=== PATIENT | male | born 1950 | race African-American/Black ===

== ENCOUNTER 2019-10-16 17:17 | Inpatient (IN) | payer SELFPAY ==
[~2019-10-16] VITALS: Ht 175.3 cm; Wt 50.3 kg
[2019-10-16 18:18] LABS: HEMATOCRIT. 45.1 % (42.0-52.0); HEMOGLOBIN. 14.8 g/dL (14.0-18.0); MEAN CORPUSCULAR VOLUME 85.1 fL (80.0-94.0); MEAN PLATELET VOLUME 9.9 fl (7.4-10.4); RED BLOOD CELL COUNT 5.29 mill/uL (4.7-6.1); RED CELL DISTRIBUTION WIDTH 16.1 % (11.6-14.6)
[2019-10-16 18:21] LABS: CHLORIDE 103 mEq/L (98-107)
[2019-10-16] MEDS ORDERED: IPRATROPIUM/ALBUTEROL 0.5-3(2.5)MG/3ML NEB HHN ONE (20:30)
[2019-10-16 21:08] LABS: PLATELET ESTIMATE DECREASED
[2019-10-16 21:11] LABS: PLATELET 52 x1000/uL (130-400)
[2019-10-16] MEDS ORDERED: AZITHROMYCIN 500 MG TABLET PO ONE (23:15)
[2019-10-16] MEDS ORDERED: SODIUM CHLORIDE 0.9% 1000ML BAG (SEPSIS BOLUS) IV ONE (23:15)
[2019-10-17] MEDS ORDERED: AZITHROMYCIN 500 MG in DEXT 5% WATER 250 ML IV STA (00:25)
[2019-10-17] MEDS ORDERED: CLONIDINE 0.1MG TABLET PO PRN (03:00)
[2019-10-17] MEDS ORDERED: MAGNESIUM/ALUMINUM HYDROXIDE/SIMETHICONE 30ML UDC PO PRN (03:00)
[2019-10-17] MEDS ORDERED: DIPHENHYDRAMINE 50MG/ML VIAL IV PRN (03:00)
[2019-10-17] MEDS ORDERED: ONDANSETRON HCL 4MG/2ML INJ IV PRN (03:00)
[2019-10-17] MEDS ORDERED: GUAIFENESIN 200MG/10ML SUGAR FREE UDC PO PRN (03:00)
[2019-10-17] MEDS ORDERED: IPRATROPIUM/ALBUTEROL 0.5-3(2.5)MG/3ML NEB HHN PRN (03:00)
[2019-10-17] MEDS ORDERED: LEVOFLOXACIN 500MG PREMIX 100 ML IV SCH (03:00)
[2019-10-17 09:15] VITALS: BP 132/82
[2019-10-17 12:09] VITALS: BP 102/70
[2019-10-17] MEDS: SODIUM CHLORIDE 0.9% INJ 3ML FLUSH IVF SCH ×3 (14:00→22:27)
[2019-10-17 14:37] LABS: CLARITY URINE CLOUDY (CLEAR); COLOR URINE DARK YELLOW (YELLOW); KETONES URINE 1+ (NEGATIVE); LEUKOCYTE ESTERASE URINE 2+ (NEGATIVE); NITRITE URINE NEGATIVE (NEGATIVE); OCCULT BLOOD URINE 3+ (NEGATIVE); PROTEIN URINE 1+ (NEGATIVE); SPECIFIC GRAVITY URINE 1.025 (1.005-1.030)
[2019-10-17 15:02] LABS: *AMPHETAMINES SCREEN URINE NEGATIVE (NEGATIVE); *BARBITURATES SCREEN URINE NEGATIVE (NEGATIVE); *BENZODIAZEPINES SCREEN URINE NEGATIVE (NEGATIVE); *COCAINE SCREEN URINE NEGATIVE (NEGATIVE); METHADONE URINE SCREEN NEGATIVE (NEGATIVE); OPIATES URINE SCREEN NEGATIVE (NEGATIVE)
[2019-10-17 15:03] LABS: CANNABINOID URINE SCREEN NEGATIVE (NEGATIVE); PHENCYCLIDINE URINE SCREEN NEGATIVE (NEGATIVE)
[2019-10-17 16:12] VITALS: BP 121/74
[2019-10-17] MEDS: CEFTRIAXONE 1 G PREMIX 50 ML IV SCH (18:48)
[2019-10-17 20:00] VITALS: BP 120/80
[2019-10-18] VITALS: BP 108/71
[2019-10-18] MEDS: AZITHROMYCIN 500 MG in DEXT 5% WATER 250 ML IV SCH (00:15)
[2019-10-18] MEDS: ACETAMINOPHEN 325MG TABLET PO PRN (01:52)
[2019-10-18] MEDS: IPRATROPIUM/ALBUTEROL 0.5-3(2.5)MG/3ML NEB HHN SCH ×4 (02:40→19:58)
[2019-10-18 04:00] VITALS: BP 129/80
[2019-10-18] MEDS: SODIUM CHLORIDE 0.9% INJ 3ML FLUSH IVF SCH ×3 (06:10→22:51)
[2019-10-18 06:56] LABS: HEMATOCRIT. 33.4 % (42.0-52.0); HEMOGLOBIN. 11.2 g/dL (14.0-18.0); MEAN CORPUSCULAR HEMOGLOBIN 28.2 pg (28.0-32.0); MEAN CORPUSCULAR VOLUME 84.3 fL (80.0-94.0); MEAN PLATELET VOLUME 9.1 fl (7.4-10.4); RED BLOOD CELL COUNT 3.96 mill/uL (4.7-6.1); RED CELL DISTRIBUTION WIDTH 15.7 % (11.6-14.6)
[2019-10-18 07:42] LABS: CHLORIDE 98 mEq/L (98-107)
[2019-10-18 07:49] LABS: PLATELET 50 x1000/uL (130-400)
[2019-10-18 08:00] VITALS: BP 97/68
[2019-10-18 12:40] VITALS: BP 92/62
[2019-10-18] MEDS: CEFTRIAXONE 1 G PREMIX 50 ML IV SCH (14:21)
[2019-10-18 16:12] VITALS: BP 98/64
[2019-10-18 20:44] VITALS: BP 113/70
[2019-10-18] MEDS ORDERED: TEMAZEPAM 15MG CAPSULE PO PRN (21:45)
[2019-10-19] MEDS: ACETYLCYSTEINE 100MG/ML 10% VIAL 4ML INH SCH ×2 (00:31→15:56)
[2019-10-19 00:37] VITALS: BP 116/68
[2019-10-19] MEDS: AZITHROMYCIN 500 MG in DEXT 5% WATER 250 ML IV SCH (01:00)
[2019-10-19] MEDS: IPRATROPIUM/ALBUTEROL 0.5-3(2.5)MG/3ML NEB HHN SCH ×5 (01:55→20:29)
[2019-10-19 04:00] VITALS: BP 121/66
[2019-10-19] MEDS: SODIUM CHLORIDE 0.9% INJ 3ML FLUSH IVF SCH ×3 (05:44→22:12)
[2019-10-19 08:00] VITALS: BP 125/60
[2019-10-19 12:00] VITALS: BP 113/78
[2019-10-19] MEDS: CEFTRIAXONE 1 G PREMIX 50 ML IV SCH (13:20)
[2019-10-19 16:00] VITALS: BP 120/72
[2019-10-19 17:04] LABS: PLATELET ESTIMATE MARKEDLY DECREASED
[2019-10-19 20:24] VITALS: BP 119/74
[2019-10-20] MEDS: AZITHROMYCIN 500 MG in DEXT 5% WATER 250 ML IV SCH (00:01)
[2019-10-20 00:18] VITALS: BP 121/77
[2019-10-20] MEDS: IPRATROPIUM/ALBUTEROL 0.5-3(2.5)MG/3ML NEB HHN SCH ×7 (00:31→23:30)
[2019-10-20 04:00] VITALS: BP 107/75
[2019-10-20] MEDS: SODIUM CHLORIDE 0.9% INJ 3ML FLUSH IVF SCH ×3 (05:40→22:17)
[2019-10-20] MEDS: ACETYLCYSTEINE 100MG/ML 10% VIAL 4ML INH SCH ×3 (07:46→23:30)
[2019-10-20 08:00] VITALS: BP 110/67
[2019-10-20 09:09] LABS: HIV SCREEN 4G Non Reactive (Non Reactive)
[2019-10-20 12:00] VITALS: BP 116/86
[2019-10-20] MEDS: CEFTRIAXONE 1,000 MG in DEXTROSE 5% WATER 50 ML IV SCH (13:36)
[2019-10-20 16:00] VITALS: BP 126/75
[2019-10-20 20:52] VITALS: BP 121/76
[2019-10-20] MEDS ORDERED: POTASSIUM CHLORIDE 20MEQ TABLET SR PO NR (21:00)
[2019-10-20 21:30] LABS: HEPATITIS B SURFACE ANTIGEN NEGATIVE
[2019-10-21 00:41] VITALS: BP 118/75
[2019-10-21] MEDS: AZITHROMYCIN 500 MG in DEXT 5% WATER 250 ML IV SCH (01:56)
[2019-10-21] MEDS: IPRATROPIUM/ALBUTEROL 0.5-3(2.5)MG/3ML NEB HHN SCH ×3 (03:29→21:00)
[2019-10-21 04:00] VITALS: BP 108/78
[2019-10-21] MEDS: ACETYLCYSTEINE 100MG/ML 10% VIAL 4ML INH SCH ×3 (06:00→21:53)
[2019-10-21] MEDS: SODIUM CHLORIDE 0.9% INJ 3ML FLUSH IVF SCH ×3 (06:00→22:00)
[2019-10-21 08:00] VITALS: BP 163/60
[2019-10-21 12:13] VITALS: BP 115/75
[2019-10-21] MEDS ORDERED: GADOBENATE DIMEGLUMINE 529 MG/ML 10ML IV ONE (15:22)
[2019-10-21 16:16] VITALS: BP 119/79
[2019-10-21] MEDS: CEFTRIAXONE 1,000 MG in DEXTROSE 5% WATER 50 ML IV SCH (16:44)
[2019-10-21] MEDS: ACETAMINOPHEN 325MG TABLET PO PRN (20:18)
[2019-10-21 20:28] VITALS: BP 115/79
[2019-10-22 00:03] VITALS: BP 117/77
[2019-10-22] MEDS: AZITHROMYCIN 500 MG in DEXT 5% WATER 250 ML IV SCH (00:09)
[2019-10-22] MEDS: IPRATROPIUM/ALBUTEROL 0.5-3(2.5)MG/3ML NEB HHN SCH ×3 (00:46→08:24)
[2019-10-22 04:00] VITALS: BP 113/74
[2019-10-22] MEDS: ACETYLCYSTEINE 100MG/ML 10% VIAL 4ML INH SCH ×3 (05:11→16:21)
[2019-10-22] MEDS: SODIUM CHLORIDE 0.9% INJ 3ML FLUSH IVF SCH ×3 (05:21→22:14)
[2019-10-22 07:35] LABS: HEMATOCRIT. 35.7 % (42.0-52.0); MEAN CORPUSCULAR HEMOGLOBIN 28.2 pg (28.0-32.0); MEAN CORPUSCULAR VOLUME 84.1 fL (80.0-94.0); MEAN PLATELET VOLUME 8.9 fl (7.4-10.4); RED BLOOD CELL COUNT 4.24 mill/uL (4.7-6.1); RED CELL DISTRIBUTION WIDTH 16.3 % (11.6-14.6)
[2019-10-22 07:51] LABS: PLATELET 35 x1000/uL (130-400)
[2019-10-22 07:53] LABS: CHLORIDE 100 mEq/L (98-107)
[2019-10-22 08:13] VITALS: BP 115/78
[2019-10-22 12:00] VITALS: BP 113/79
[2019-10-22] MEDS: CEFTRIAXONE 1,000 MG in DEXTROSE 5% WATER 50 ML IV SCH (14:49)
[2019-10-22 16:00] VITALS: BP 120/79
[2019-10-22] MEDS: IPRATROPIUM BROMIDE (0.02%) 0.5MG/2.5ML NEB HHN SCH ×2 (16:21→22:25)
[2019-10-22] MEDS: RIFAMPIN 150MG CAPSULE PO SCH (17:00)
[2019-10-22 17:06] LABS: QFT MITOGEN VALUE 0.57 IU/mL (.); QFT TB GOLD PLUS Indeterminate (Negative)
[2019-10-22] MEDS: ETHAMBUTOL HCL 400MG TABLET PO SCH (17:26)
[2019-10-22] MEDS: PYRAZINAMIDE 500MG TABLET PO SCH (17:26)
[2019-10-22] MEDS: PYRIDOXINE HCL 50MG TABLET PO SCH (17:26)
[2019-10-22 18:54] LABS: PLATELET ESTIMATE MARKEDLY DECREASED
[2019-10-22 20:48] VITALS: BP 119/85
[2019-10-23 00:16] VITALS: BP 121/82
[2019-10-23] MEDS: IPRATROPIUM BROMIDE (0.02%) 0.5MG/2.5ML NEB HHN SCH ×6 (01:37→21:04)
[2019-10-23 04:00] VITALS: BP 103/79
[2019-10-23] MEDS: SODIUM CHLORIDE 0.9% INJ 3ML FLUSH IVF SCH ×3 (05:52→21:03)
[2019-10-23] MEDS: PYRAZINAMIDE 500MG TABLET PO SCH ×2 (09:00→09:52)
[2019-10-23] MEDS: ETHAMBUTOL HCL 400MG TABLET PO SCH ×2 (09:00→09:52)
[2019-10-23] MEDS: PYRIDOXINE HCL 50MG TABLET PO SCH (09:51)
[2019-10-23] MEDS: RIFAMPIN 150MG CAPSULE PO SCH (09:52)
[2019-10-23] MEDS: ACETYLCYSTEINE 100MG/ML 10% VIAL 4ML INH SCH ×2 (09:53→16:13)
[2019-10-23 12:00] VITALS: BP 91/63
[2019-10-23] MEDS ORDERED: CEFTRIAXONE 1 G PREMIX 50 ML IV SCH (14:00)
[2019-10-23] MEDS: ISONIAZID 300MG TABLET PO SCH (17:00)
[2019-10-23 20:00] VITALS: BP 96/71
[2019-10-24] VITALS: BP 94/71
[2019-10-24] MEDS: ACETYLCYSTEINE 100MG/ML 10% VIAL 4ML INH SCH ×3 (00:48→08:53)
[2019-10-24] MEDS: IPRATROPIUM BROMIDE (0.02%) 0.5MG/2.5ML NEB HHN SCH ×6 (00:48→21:42)
[2019-10-24 04:00] VITALS: BP 91/56
[2019-10-24 06:58] LABS: CHLORIDE 101 mEq/L (98-107)
[2019-10-24 07:06] LABS: INR 1.4; PARTIAL THROMBOPLASTIN TIME 31.7 sec (23.4-31.0); PROTHROMBIN TIME 15.4 sec (9.6-11.0)
[2019-10-24 07:23] LABS: HEMATOCRIT. 37.6 % (42.0-52.0); HEMOGLOBIN. 12.9 g/dL (14.0-18.0); MEAN CORPUSCULAR HEMOGLOBIN 28.5 pg (28.0-32.0); MEAN CORPUSCULAR VOLUME 83.2 fL (80.0-94.0); MEAN PLATELET VOLUME 8.9 fl (7.4-10.4); RED BLOOD CELL COUNT 4.52 mill/uL (4.7-6.1); RED CELL DISTRIBUTION WIDTH 15.8 % (11.6-14.6)
[2019-10-24 08:00] VITALS: BP 93/67
[2019-10-24 08:55] LABS: PLATELET 32 x1000/uL (130-400)
[2019-10-24] MEDS: RIFAMPIN 150MG CAPSULE PO SCH (09:29)
[2019-10-24] MEDS: ISONIAZID 300MG TABLET PO SCH (09:29)
[2019-10-24] MEDS: PYRIDOXINE HCL 50MG TABLET PO SCH (09:29)
[2019-10-24 11:31] LABS: PLATELET ESTIMATE MARKEDLY DECREASED
[2019-10-24 12:00] VITALS: BP 102/75
[2019-10-24 16:00] VITALS: BP 108/81
[2019-10-24 20:00] VITALS: BP 96/65
[2019-10-24] MEDS: SODIUM CHLORIDE 0.9% INJ 3ML FLUSH IVF SCH (22:33)
[2019-10-25] VITALS: BP 95/62
[2019-10-25] MEDS: IPRATROPIUM BROMIDE (0.02%) 0.5MG/2.5ML NEB HHN SCH ×6 (01:21→22:17)
[2019-10-25 04:00] VITALS: BP 94/67
[2019-10-25] MEDS: SODIUM CHLORIDE 0.9% INJ 3ML FLUSH IVF SCH ×2 (06:57→16:55)
[2019-10-25 08:00] VITALS: BP 96/63
[2019-10-25] MEDS: RIFAMPIN 150MG CAPSULE PO SCH (08:47)
[2019-10-25] MEDS: ETHAMBUTOL HCL 400MG TABLET PO SCH (08:48)
[2019-10-25] MEDS: ISONIAZID 300MG TABLET PO SCH (08:48)
[2019-10-25] MEDS: PYRIDOXINE HCL 50MG TABLET PO SCH (08:48)
[2019-10-25] MEDS: PYRAZINAMIDE 500MG TABLET PO SCH (08:48)
[2019-10-25 12:00] VITALS: BP 97/70
[2019-10-25 16:00] VITALS: BP 96/66
[2019-10-25 20:00] VITALS: BP 102/70
[2019-10-26] VITALS: BP 111/68
[2019-10-26] MEDS: IPRATROPIUM BROMIDE (0.02%) 0.5MG/2.5ML NEB HHN SCH ×6 (01:09→20:04)
[2019-10-26 04:00] VITALS: BP 110/75
[2019-10-26] MEDS: SODIUM CHLORIDE 0.9% INJ 3ML FLUSH IVF SCH ×3 (06:17→20:47)
[2019-10-26 07:16] LABS: HEMATOCRIT. 34.7 % (42.0-52.0); HEMOGLOBIN. 11.4 g/dL (14.0-18.0); MEAN CORPUSCULAR HEMOGLOBIN 27.7 pg (28.0-32.0); MEAN PLATELET VOLUME 9.4 fl (7.4-10.4); RED BLOOD CELL COUNT 4.13 mill/uL (4.7-6.1); RED CELL DISTRIBUTION WIDTH 16.1 % (11.6-14.6)
[2019-10-26 07:34] LABS: PLATELET 17 x1000/uL (130-400)
[2019-10-26 08:13] VITALS: BP 99/70
[2019-10-26 08:21] LABS: CHLORIDE 107 mEq/L (98-107)
[2019-10-26] MEDS: PYRAZINAMIDE 500MG TABLET PO SCH ×2 (08:41→09:00)
[2019-10-26] MEDS: ETHAMBUTOL HCL 400MG TABLET PO SCH ×2 (08:41→09:00)
[2019-10-26] MEDS: PYRIDOXINE HCL 50MG TABLET PO SCH ×2 (08:41→09:00)
[2019-10-26] MEDS: RIFAMPIN 150MG CAPSULE PO SCH ×2 (08:41→09:00)
[2019-10-26] MEDS: ISONIAZID 300MG TABLET PO SCH ×2 (08:44→09:00)
[2019-10-26 11:49] LABS: PLATELET ESTIMATE MARKEDLY DECREASED
[2019-10-26 12:00] VITALS: BP 106/72
[2019-10-26 16:00] VITALS: BP 121/75
[2019-10-26 20:00] VITALS: BP 115/60
[2019-10-27] VITALS: BP 100/80
[2019-10-27] MEDS: IPRATROPIUM BROMIDE (0.02%) 0.5MG/2.5ML NEB HHN SCH ×6 (01:23→21:22)
[2019-10-27 04:00] VITALS: BP 92/60
[2019-10-27] MEDS: SODIUM CHLORIDE 0.9% INJ 3ML FLUSH IVF SCH ×2 (06:56→13:32)
[2019-10-27 08:14] VITALS: BP 123/66
[2019-10-27] MEDS: ETHAMBUTOL HCL 400MG TABLET PO SCH (09:00)
[2019-10-27] MEDS: RIFAMPIN 150MG CAPSULE PO SCH (09:00)
[2019-10-27] MEDS: PYRAZINAMIDE 500MG TABLET PO SCH (09:00)
[2019-10-27] MEDS ORDERED: ISONIAZID 100 MG TABLET PO SCH (09:00)
[2019-10-27] MEDS: PYRIDOXINE HCL 50MG TABLET PO SCH (09:00)
[2019-10-27 15:53] LABS: HEMOGLOBIN. 11.9 g/dL (14.0-18.0); MEAN CORPUSCULAR HEMOGLOBIN 27.7 pg (28.0-32.0); MEAN PLATELET VOLUME 9.8 fl (7.4-10.4); RED BLOOD CELL COUNT 4.28 mill/uL (4.7-6.1); RED CELL DISTRIBUTION WIDTH 16.4 % (11.6-14.6)
[2019-10-27 15:56] LABS: PLATELET 16 x1000/uL (130-400)
[2019-10-27 16:08] VITALS: BP 107/66
[2019-10-27 16:25] LABS: PLATELET ESTIMATE MARKEDLY DECREASED
[2019-10-27 20:00] VITALS: BP 110/66
[2019-10-28] VITALS: BP 108/63
[2019-10-28] MEDS: IPRATROPIUM BROMIDE (0.02%) 0.5MG/2.5ML NEB HHN SCH ×2 (00:33→04:19)
[2019-10-28] MEDS: SODIUM CHLORIDE 0.9% INJ 3ML FLUSH IVF SCH (04:40)
[2019-10-28] MEDS ORDERED: DOPAMINE 400MG/250ML PREMIX 250 ML IV PRN (05:45)
== END 2019-10-28 11:58 | disposition expired | DRG 720 ==
LOC: ER 17:17 → 6WST 23:16 → EDBEDREQ 23:18 → EDBEDREQTM 23:18 → ENRESERV 10-17 08:32 → 6WST 10-17 18:53
PROVIDERS: ADMIT Internal Medicine; ATTEND Internal Medicine
PROC: 5A12012 Performance of Cardiac Output, Single, Manual (ICD-10-PCS; principal; 2019-10-28)
PROC: 5A1935Z Respiratory Ventilation, Less than 24 Consecutive Hours (ICD-10-PCS; 2019-10-28)
PROC: 0BH17EZ Insertion of Endotracheal Airway into Trachea, Via Natural or Artificial Opening (ICD-10-PCS; 2019-10-28)
DX: A41.9 Sepsis, unspecified organism (principal); J96.00 Acute respiratory failure, unspecified whether with hypoxia or hypercapnia; E43 Unspecified severe protein-calorie malnutrition; D61.818 Other pancytopenia; J18.8 Other pneumonia, unspecified organism; A18.01 Tuberculosis of spine; K68.12 Psoas muscle abscess; M48.56XA Collapsed vertebra, not elsewhere classified, lumbar region, initial encounter for fracture; R64 Cachexia; A31.9 Mycobacterial infection, unspecified; N39.0 Urinary tract infection, site not specified; M46.25 Osteomyelitis of vertebra, thoracolumbar region; M46.26 Osteomyelitis of vertebra, lumbar region; M46.46 Discitis, unspecified, lumbar region; M46.45 Discitis, unspecified, thoracolumbar region; Z53.29 Procedure and treatment not carried out because of patient's decision for other reasons; F32.9 Major depressive disorder, single episode, unspecified; F41.9 Anxiety disorder, unspecified; Z59.0 Homelessness; Z68.1 Body mass index [BMI] 19.9 or less, adult; Z91.19 Patient's noncompliance with other medical treatment and regimen; Z78.9 Other specified health status
CPT/HCPCS: 36415; 71045; 71250; 72156; 72157; 72158; 80048; 80053; 80305; 81003; 82010; 82962; 83605; 83880; 84145; 84443; 84484; 85025; 85651; 86140; 86480; 86635; 86803; 86850; 86900; 87070; 87116; 87340; 87389; 87556; 87899; 92950; 93005; 93970; 94640; 96365; 99285; A9577; J0456; J0696; J1956; J7030; J7060; J7608